=== PATIENT | female | born 1970 | race Caucasian/White ===

== ENCOUNTER 2019-01-13 04:58 | Emergency (ER) | payer MEDICAID ==
[2019-01-13 05:54] LABS: ADD MAN DIFF? NO
[2019-01-13] MEDS: ACETAMINOPHEN 325 MG TAB PO (06:03)
[2019-01-13 06:04] LABS: WHITE BLOOD COUNT 5.4 10^3/ul (4.8-10.8)
[2019-01-13 06:04] LABS: BASOPHILS % 0.7 % (0.0-2.0); EOSINOPHILS # 0.2 10^3/ul (0.0-0.5); HEMATOCRIT 32.5 % (37.0-47.0); HEMOGLOBIN 11.1 g/dl (12.0-16.0); LYMPHOCYTES # 1.6 10^3/ul (0.8-2.9); LYMPHOCYTES % 28.7 % (15.0-51.0); MEAN CORPUSCULAR HEMOGLOBIN 30.2 pg (29.0-33.0); MEAN CORPUSCULAR HGB CONC 34.2 g/dl (32.0-37.0); MEAN CORPUSCULAR VOLUME 88.6 fl (82.0-101.0); MEAN PLATELET VOLUME 10.6 fl (7.4-10.4); MONOCYTE # 0.4 10^3/ul (0.3-0.9); MONOCYTES % 6.5 % (0.0-11.0); NEUTROPHIL # 3.3 10^3/ul (1.6-7.5); NEUTROPHILS % 60.9 % (39.0-77.0); PLATELET COUNT 211 10^3/UL (140-415); RED BLOOD COUNT 3.67 10^6/ul (4.20-5.40); RED CELL DISTRIBUTION WIDTH 13.3 % (11.5-14.5)
[2019-01-13 06:10] LABS: ADD UMIC YES; UR ASCORBIC ACID NEGATIVE (NEGATIVE); UR BACTERIA FEW /HPF (NONE SEEN); UR BILIRUBIN (Dip) NEGATIVE (NEGATIVE); UR BLOOD (Dip) 3+ mg/dL (NEGATIVE); UR CLARITY CLOUDY (CLEAR); UR COLOR RED (YELLOW); UR GLUCOSE (Dip) NEGATIVE (NEGATIVE); UR KETONES (Dip) NEGATIVE (NEGATIVE); UR LEUKOCYTE ESTERASE (Dip) NEGATIVE Leu/ul (NEGATIVE); UR MUCUS FEW /HPF (NONE SEEN); UR NITRITE (Dip) NEGATIVE (NEGATIVE); UR RBC > 182 /HPF (0-5); UR SPECIFIC GRAVITY (Dip) 1.017 (1.003-1.030); UR TOTAL PROTEIN (Dip) 2+ mg/dl (NEGATIVE); UR UROBILINOGEN (Dip) NEGATIVE (NEGATIVE); UR WBC 48 /HPF (0-5)
[2019-01-13 06:25] LABS: ANION GAP 8 (5-13); BLOOD UREA NITROGEN 13 mg/dl (7-20); CALCIUM 8.9 mg/dl (8.4-10.2); CARBON DIOXIDE 27 mmol/L (21-31); CHLORIDE 106 mmol/L (97-110); CREATININE 0.49 mg/dl (0.44-1.00); Estimated GFR > 60 mL/min (>60); GLUCOSE 124 mg/dl (70-220); SODIUM 141 mmol/L (135-144)
== END 2019-01-13 07:13 | disposition home or self-care (01) ==
LOC: FTE 04:58
DX: N93.8 Other specified abnormal uterine and vaginal bleeding (principal)
CPT/HCPCS: 36415; 76856; 80048; 81001; 81025; 85025; 99284-25